=== PATIENT | female | born 1940 | race Caucasian/White ===

== ENCOUNTER 2022-05-13 11:30 | Emergency (ER) | payer OTHER ==
[2022-05-13 12:20] VITALS: BP 146/106; PULSE 103; RESP 20; TEMP 97.4; BMI 27.1
[2022-05-13] MEDS ORDERED: MECLIZINE HCL 25 MG TABLET (FP) PO ONE ×2 (13:05→14:28)
[2022-05-13] MEDS ORDERED: MECLIZINE HCL 25 MG TABLET (FP) ONE ×2 (13:12→14:49)
[2022-05-13] MEDS ORDERED: diazePAM 5 MG TABLET PO ONE (16:16)
[2022-05-13] MEDS ORDERED: diazePAM 5 MG TABLET ONE (16:47)
[2022-05-13 17:12] LABS: BASO % 1.3 % (0-2.0); EOS % 0.5 % (0-4.5); HEMATOCRIT 45.3 % (32.4-45.2); LYMPH % 23.2 % (8-40); MCH 27.7 pg (25.7-33.7); MEAN CELL VOLUME 83.9 fl (80-96); MEAN PLT VOLUME 8.7 fl (7.5-11.1); MONO % 8.1 % (3.8-10.2); NEUT % 66.9 % (42.8-82.8); PLATELET COUNT 347 10^3/uL (134-434); RDW 14.6 % (11.6-15.6); WHITE BLOOD COUNT 9.9 K/mm3 (4.0-10.0)
[2022-05-13 17:33] LABS: ALBUMIN 3.8 g/dl (3.4-5.0); BLOOD UREA NITROGEN 14.3 mg/dL (7-18); CALCIUM 9.3 mg/dL (8.5-10.1)
[2022-05-13 17:36] LABS: CREATININE 0.9 mg/dL (0.55-1.3)
[2022-05-13 17:37] LABS: BILIRUBIN,TOTAL 0.5 mg/dL (0.2-1); TOT PROT 7.7 g/dl (6.4-8.2)
== END 2022-05-13 19:00 | disposition home or self-care (01) ==
LOC: JER 11:30 → UNDOADMOB 16:59 → JERBED 16:59 → JER 19:00
DX: H81.10 Benign paroxysmal vertigo, unspecified ear (principal)
CPT/HCPCS: 36415; 70450-TC; 71045-TC-FY; 80053; 82962; 85025; 93005; 93010; 99285-25

== ENCOUNTER 2024-03-06 11:29 | Day surgery (SDC) | payer OTHER ==
[2024-03-06] MEDS: FERRIC CARBOXYMALTOSE 750 MG in SODIUM CHLORIDE 250 ML IVPB ONE (12:00)
[2024-03-06 15:30] VITALS: BP 124/73; PULSE 80; RESP 16; TEMP 98.6
== END 2024-03-06 13:21 | disposition home or self-care (01) ==
LOC: FINFUSION 11:29 → FM/S 11:34 → FINFUSION 13:21
PROVIDERS: ATTEND Family Medicine
PROC: 3E033GC Introduction of Other Therapeutic Substance into Peripheral Vein, Percutaneous Approach (ICD-10-PCS; principal; 2024-03-06)
DX: D50.9 Iron deficiency anemia, unspecified (principal)
CPT/HCPCS: 96365; J1439

== ENCOUNTER 2024-03-13 11:13 | Day surgery (SDC) | payer OTHER ==
[2024-03-13] MEDS: FERRIC CARBOXYMALTOSE 750 MG in SODIUM CHLORIDE 250 ML IVPB ONE (11:55)
[2024-03-13 13:21] VITALS: BP 117/76; PULSE 70; RESP 19; TEMP 98.1
== END 2024-03-13 13:23 | disposition home or self-care (01) ==
LOC: FINFUSION 11:13 → FM/S 11:16 → FINFUSION 13:23
PROVIDERS: ATTEND Family Medicine
PROC: 3E033GC Introduction of Other Therapeutic Substance into Peripheral Vein, Percutaneous Approach (ICD-10-PCS; principal; 2024-03-13)
DX: D50.9 Iron deficiency anemia, unspecified (principal)
CPT/HCPCS: 96365; J1439

== ENCOUNTER 2024-08-15 11:12 | Inpatient (IN) | payer OTHER ==
[2024-08-15 12:57] LABS: POTASSIUM 5.4 mmol/L (3.5-5.1)
[2024-08-15 12:59] LABS: ALBUMIN 3.2 g/dl (3.4-5.0); BLOOD UREA NITROGEN 11.3 mg/dL (7-18); CALCIUM 8.8 mg/dL (8.5-10.1)
[2024-08-15 13:00] LABS: MAGNESIUM 2.4 mg/dL (1.8-2.4)
[2024-08-15 13:03] LABS: CREATININE 0.9 mg/dL (0.55-1.3)
[2024-08-15 13:04] LABS: BILIRUBIN,TOTAL 0.7 mg/dL (0.2-1); TOT PROT 7.5 g/dl (6.4-8.2)
[2024-08-15 13:22] LABS: BASO % 0.9 % (0-2.0); EOS % 1.9 % (0-4.5); HEMATOCRIT 36.3 % (32.4-45.2); HEMOGLOBIN 11.5 GM/dL (10.7-15.3); LYMPH % 15.3 % (8-40); MCH 24.9 pg (25.7-33.7); MCHC 31.7 g/dl (32.0-36.0); MEAN CELL VOLUME 78.7 fl (80-96); MEAN PLT VOLUME 8.4 fl (7.5-11.1); MONO % 10.3 % (3.8-10.2); NEUT % 71.6 % (42.8-82.8); PLATELET COUNT 392 10^3/uL (134-434); RBC 4.61 M/mm3 (3.60-5.2); RDW 15.9 % (11.6-15.6); WHITE BLOOD COUNT 8.4 K/mm3 (4.0-10.0)
[2024-08-15 13:29] LABS: INR 1.09 (0.83-1.09); PROTHROMBIN TIME (PATIENT) 12.3 SEC (9.7-13.0)
[2024-08-15 13:31] LABS: ACTIVATED PTT 30.2 SECONDS (25.2-36.5)
[2024-08-15 13:50] LABS: EPI CELLS 18 /uL (0-25.1); HYALINE CASTS 0 /uL (0-3.1); URINE APPEARANCE CLEAR; URINE BACTERIA 557 /uL (0-1359); URINE BILIRUBIN NEGATIVE (NEGATIVE); URINE COLOR YELLOW; URINE GLUCOSE (UA) NEGATIVE (NEGATIVE); URINE KETONE NEGATIVE (NEGATIVE); URINE LEUK ESTERASE TRACE (NEGATIVE); URINE NITRITE NEGATIVE (NEGATIVE); URINE PROTEIN NEGATIVE (NEGATIVE); URINE RBC 85 /uL (0-23.9); URINE UROBILINOGEN 0.2 mg/dL (0.2-1.0); URINE WBC 20 /uL (0-25.8)
[2024-08-15 14:13] LABS: ALBUMIN 3.2 g/dl (3.4-5.0); BILIRUBIN,TOTAL 0.3 mg/dL (0.2-1); BLOOD UREA NITROGEN 11.6 mg/dL (7-18); CREATININE 0.8 mg/dL (0.55-1.3); MAGNESIUM 2.4 mg/dL (1.8-2.4); POTASSIUM 4.2 mmol/L (3.5-5.1); TOT PROT 7.3 g/dl (6.4-8.2)
[2024-08-15] MEDS ORDERED: ACETAMINOPHEN 1000 MG/100 ML BAG IVPB PRN (14:28)
[2024-08-15] MEDS: DEXTROSE 5%-NORMAL SALINE 1,000 ML IV SCH (15:17)
[2024-08-15 18:00] VITALS: BMI 23.7
[2024-08-15 21:29] VITALS: RESP 18
[2024-08-15] MEDS ORDERED: PANTOPRAZOLE SODIUM 40 MG VIAL IVPUSH SCH (22:00)
[2024-08-15] MEDS: HYDROCORTISONE ACETATE 25 MG/SUPP.RECT RC SCH (22:35)
[2024-08-16 08:46] LABS: BASO % 0.7 % (0-2.0); EOS % 4.3 % (0-4.5); HEMATOCRIT 34.2 % (32.4-45.2); HEMOGLOBIN 10.7 GM/dL (10.7-15.3); LYMPH % 20.9 % (8-40); MCH 24.7 pg (25.7-33.7); MCHC 31.2 g/dl (32.0-36.0); MEAN CELL VOLUME 79.1 fl (80-96); MEAN PLT VOLUME 8.2 fl (7.5-11.1); MONO % 12.1 % (3.8-10.2); PLATELET COUNT 339 10^3/uL (134-434); RBC 4.32 M/mm3 (3.60-5.2); RDW 16.2 % (11.6-15.6); WHITE BLOOD COUNT 7.3 K/mm3 (4.0-10.0)
[2024-08-16 09:12] LABS: INR 1.13 (0.83-1.09); POTASSIUM 3.9 mmol/L (3.5-5.1); PROTHROMBIN TIME (PATIENT) 12.7 SEC (9.7-13.0)
[2024-08-16 09:19] LABS: ALBUMIN 2.9 g/dl (3.4-5.0); BLOOD UREA NITROGEN 9.7 mg/dL (7-18)
[2024-08-16 09:22] LABS: BILIRUBIN,TOTAL 0.4 mg/dL (0.2-1); CREATININE 0.7 mg/dL (0.55-1.3); TOT PROT 6.4 g/dl (6.4-8.2)
[2024-08-16] MEDS: POLYETHYLENE GLYCOL (HEALTHYLAX) 3350 17 GM PACKET PO SCH (09:50)
[2024-08-16] MEDS: PANTOPRAZOLE 40 MG TABLET PO SCH (09:50)
[2024-08-16 12:32] VITALS: BP 121/100; PULSE 82; TEMP 97.9
== END 2024-08-16 13:44 | disposition home or self-care (01) | DRG 379 ==
LOC: JER 11:12 → JERBED 14:10 → J6S 17:26
PROVIDERS: ADMIT Family Medicine; ATTEND Family Medicine
DX: K62.5 Hemorrhage of anus and rectum (principal); K57.93 Diverticulitis of intestine, part unspecified, without perforation or abscess with bleeding; I10 Essential (primary) hypertension; Z79.02 Long term (current) use of antithrombotics/antiplatelets; M19.90 Unspecified osteoarthritis, unspecified site; F17.210 Nicotine dependence, cigarettes, uncomplicated; Z79.82 Long term (current) use of aspirin
CPT/HCPCS: 36415; 71045-TC-FY; 80053; 81003; 82272; 83605; 83690; 83735; 85025; 85610; 85730; 86850; 86900; 86901; 93005; 93010; 99285-25

== ENCOUNTER 2025-01-15 06:54 | Inpatient (IN) | payer OTHER ==
[2025-01-15] MEDS ORDERED: INDOCYANINE GREEN 25 MG/10 ML VIAL IVPUSH ONE (07:04)
[2025-01-15] MEDS ORDERED: BUPIVACAINE HCL/PF 0.25% (2.5MG/ML) 10 ML VIAL ONE (07:05)
[2025-01-15] MEDS ORDERED: HEPARIN NA (PORCINE) 5,000 UNITS/ML 1ML VIAL ONE (07:05)
[2025-01-15] MEDS ORDERED: GABAPENTIN 300 MG CAPSULE ONE (07:21)
[2025-01-15] MEDS ORDERED: SCOPOLAMINE HYDROBROMIDE 1 PATCH PATCH.TD72 ONE (07:23)
[2025-01-15] MEDS: SCOPOLAMINE HYDROBROMIDE 1 PATCH PATCH.TD72 TD ONE (07:28)
[2025-01-15] MEDS: GABAPENTIN 300 MG CAPSULE PO ONE (07:28)
[2025-01-15] MEDS ORDERED: LIDOCAINE HCL/PF 2% SDV 5ML VIAL ONE (08:15)
[2025-01-15] MEDS ORDERED: ROCURONIUM BROMIDE 50 MG/5 ML SYRINGE ONE ×3 (08:15→13:13)
[2025-01-15] MEDS ORDERED: PROPOFOL 20 ML ONE (08:15)
[2025-01-15] MEDS ORDERED: ePHEDrine SULFATE 50 MG/1 ML AMPULE ONE ×2 (08:42→16:04)
[2025-01-15] MEDS: cefOXitin SODIUM 2 GM VIAL (RESTRICTED TO ID) IVPB ONE ×5 (08:45→20:38)
[2025-01-15] MEDS ORDERED: DEXAMETHASONE SOD PHOSPHATE 4 MG/1 ML VIAL ONE (08:57)
[2025-01-15] MEDS ORDERED: MAGNESIUM SULF 50% (8.12 MEQ/2 ML-1 GM VIAL) ONE ×2 (09:06)
[2025-01-15] MEDS: BUPIVACAINE HCL/PF 0.25% (2.5MG/ML) 10 ML VIAL IJ ONE (09:08)
[2025-01-15] MEDS ORDERED: cefOXitin SODIUM 2 GM VIAL (RESTRICTED TO ID) IVPB ONE (12:23)
[2025-01-15] MEDS ORDERED: PHENYLEPHRINE HCL 10 MG/1 ML SINGLE DOSE VIAL ONE (12:42)
[2025-01-15] MEDS ORDERED: ACETAMINOPHEN INJECTION 100 ML ONE (14:01)
[2025-01-15] MEDS ORDERED: SUGAMMADEX SODIUM 200 MG/2 ML VIAL ONE ×2 (14:14→14:33)
[2025-01-15] MEDS ORDERED: ONDANSETRON 4 MG/2 ML VIAL ONE (14:30)
[2025-01-15] MEDS ORDERED: morphine SULFATE 4 MG/ML VIAL IVPUSH PRN ×2 (15:31→16:56)
[2025-01-15] MEDS ORDERED: CEFOXITIN SODIUM 1 GM in DEXTROSE 5%-WATER - 100 ML IVPB SCH ×2 (16:30→18:00)
[2025-01-15] MEDS ORDERED: ONDANSETRON 4 MG/2 ML VIAL IVPUSH PRN (16:42)
[2025-01-15] MEDS: LACTATED RINGERS SOLUTION 1,000 ML IV SCH (16:45)
[2025-01-15 17:27] LABS: ARTERIAL BLD GAS O2 SATURATION 99.1 % (95-98); ARTERIAL BLOOD GAS BASE EXCESS -8.3 mmol/L (-2-2); ARTERIAL BLOOD GAS PO2 178.1 mmHg (80-100); ARTERIAL BLOOD GAS pH 7.292 (7.350-7.450); O2 CONTENT 1.74 % vol
[2025-01-15 17:32] LABS: HEMOGLOBIN 11.1 g/dL (11.2-15.7)
[2025-01-15 17:39] LABS: HEMATOCRIT 36.6 % (34.1-44.9); MCHC 30.3 g/dl (32.2-35.5); PLATELET COUNT 372 x10^3/uL (182-369)
[2025-01-15 17:46] LABS: INR 1.12 (0.83-1.09); PROTHROMBIN TIME (PATIENT) 12.3 SEC (9.7-13.0)
[2025-01-15 17:48] LABS: ALBUMIN 1.6 g/dl (3.4-5.0); BLOOD UREA NITROGEN 7.6 mg/dL (7-18); CO2 13 mmol/L (21-32); GLUCOSE,RANDOM 93 mg/dL (74-106); MAGNESIUM 1.1 mg/dL (1.8-2.4)
[2025-01-15 17:49] LABS: ACTIVATED PTT 28.9 SECONDS (25.2-36.5)
[2025-01-15 17:51] LABS: CREATININE 0.4 mg/dL (0.55-1.3); SGOT/AST 14 U/L (15-37); SGPT/ALT 10 U/L (13-61)
[2025-01-15 17:52] LABS: CHLORIDE 128 mmol/L (98-107); PHOSPHOROUS 2.4 mg/dL (2.5-4.9); SODIUM 151 mmol/L (136-145)
[2025-01-15 17:53] LABS: BILIRUBIN,TOTAL 0.4 mg/dL (0.2-1)
[2025-01-15 17:54] LABS: ALK PHOS 33 U/L (45-117); TOT PROT 3.5 g/dl (6.4-8.2)
[2025-01-15 17:56] LABS: ANION GAP 9 mmol/L (4-13); POTASSIUM 2.1 mmol/L (3.5-5.1)
[2025-01-15 18:24] LABS: CALCIUM < 5.0 mg/dL (8.5-10.1)
[2025-01-15] MEDS: MAGNESIUM SULFATE IN WATER 2 GM/50 ML IVPB IVPB ONE (18:50)
[2025-01-15] MEDS: KCL 10 MEQ IVPB 10 MEQ/100 ML INFUS.BAG IVPB SCH (19:09)
[2025-01-15] MEDS: KETOROLAC TROMETHAMINE 15 MG/ML VIAL IVPUSH PRN (19:26)
[2025-01-15] MEDS ORDERED: ACETAMINOPHEN 1000 MG/100 ML BAG IVPB SCH (20:30)
[2025-01-15] MEDS: POTASSIUM CHLORIDE ORAL LIQUID 20 MEQ/15 ML PO ONE (20:37)
[2025-01-15] MEDS: CEFOXITIN SODIUM 1 GM in DEXTROSE 5%-WATER 100 ML IVPB SCH ×2 (20:38→21:29)
[2025-01-15] MEDS ORDERED: KETOROLAC TROMETHAMINE 15 MG/ML VIAL IVPUSH SCH (21:45)
[2025-01-15] MEDS: MUPIROCIN 2% TOPICAL OINTMENT FOR DECOLONIZATION NS SCH (21:59)
[2025-01-15] MEDS: CHLORHEXIDINE GLUCONATE 4% CLEANSER FOR DECOLONIZATION TP SCH (21:59)
[2025-01-15] MEDS ORDERED: MUPIROCIN 2% TOPICAL OINTMENT FOR DECOLONIZATION NS SCH (22:00)
[2025-01-15] MEDS ORDERED: CHLORHEXIDINE GLUCONATE 4% CLEANSER FOR DECOLONIZATION TP SCH (22:00)
[2025-01-15] MEDS: D5-1/2NS+40 MEQ KCL - 40 MEQ/1,000 ML INFUS.BAG IV SCH (22:55)
[2025-01-15] MEDS: ACETAMINOPHEN 1000 MG/100 ML BAG IVPB SCH (22:57)
[2025-01-15] MEDS: ALBUMIN HUMAN 25% 12.5 GM/50 ML VIAL IV SCH (23:00)
[2025-01-16] MEDS: KETOROLAC TROMETHAMINE 15 MG/ML VIAL IVPUSH SCH (01:37)
[2025-01-16 05:55] LABS: ARTERIAL BLD GAS O2 SATURATION 98.9 % (95-98); ARTERIAL BLOOD GAS BASE EXCESS -5.8 mmol/L (-2-2); ARTERIAL BLOOD GAS PO2 145.3 mmHg (80-100); ARTERIAL BLOOD GAS pH 7.384 (7.350-7.450)
[2025-01-16 05:56] LABS: ALLENS TEST POSITIVE
[2025-01-16 06:27] LABS: POTASSIUM 4.4 mmol/L (3.5-5.1)
[2025-01-16 06:30] LABS: BLOOD UREA NITROGEN 8.4 mg/dL (7-18); MAGNESIUM 2.4 mg/dL (1.8-2.4)
[2025-01-16 06:33] LABS: CREATININE 1.1 mg/dL (0.55-1.3)
[2025-01-16 06:34] LABS: BILIRUBIN,TOTAL 0.6 mg/dL (0.2-1)
[2025-01-16 06:52] LABS: ALBUMIN 3.5 g/dl (3.4-5.0); CALCIUM 7.1 mg/dL (8.5-10.1); TOT PROT 6.2 g/dl (6.4-8.2)
[2025-01-16] MEDS: CALCIUM GLUCONATE IN NACL 1 GM/50 ML BAG IVPB ONE (08:30)
[2025-01-16 08:56] LABS: ABSOLUTE IMMATURE GRANULOCYTES 0.09 x10^3/uL (0.0-0.031); BASOPHILS # 0.02 x10^3/uL (0.01-0.08); HEMATOCRIT 31.7 % (34.1-44.9); HEMOGLOBIN 9.8 g/dL (11.2-15.7); MCHC 30.9 g/dl (32.2-35.5); MEAN CELL VOLUME 71.4 fl (79.4-94.8); MONOCYTE # 0.81 x10^3/uL (0.24-0.86); MONOCYTE % 5.1 % (4.7-12.5)
[2025-01-16] MEDS: POTASSIUM PHOSPHATE 15 MM in SODIUM CHLORIDE 250 ML IVPB ONE (09:08)
[2025-01-16] MEDS: ENOXAPARIN NA (PORCINE) 30 MG/0.3 ML DISP.SYRIN SQ SCH (09:08)
[2025-01-16] MEDS ORDERED: ONDANSETRON 4 MG/2 ML VIAL IVPUSH PRN (09:20)
[2025-01-16] MEDS ORDERED: ONDANSETRON 4 MG/2 ML VIAL ONE (09:24)
[2025-01-16] MEDS: ONDANSETRON 4 MG/2 ML VIAL IVPUSH ONE (09:30)
[2025-01-16] MEDS: DEXTROSE 5%-0.45% SALINE 1,000 ML IV SCH ×2 (09:58→15:59)
[2025-01-16] MEDS ORDERED: SODIUM PHOSPHATE - 15 MM in SODIUM CHLORIDE 250 ML IVPB ONE (10:00)
[2025-01-16] MEDS ORDERED: POTASSIUM PHOSPHATE 15 MM in SODIUM CHLORIDE 250 ML IVPB ONE ×2 (10:00→15:18)
[2025-01-16] MEDS ORDERED: ENOXAPARIN NA (PORCINE) 30 MG/0.3 ML DISP.SYRIN SQ SCH (10:00)
[2025-01-16] MEDS: ACETAMINOPHEN 1000 MG/100 ML BAG IVPB PRN (17:31)
[2025-01-16] MEDS ORDERED: CEFOXITIN SODIUM 1 GM in DEXTROSE 5%-WATER - 100 ML IVPB SCH (18:00)
[2025-01-16] MEDS: CEFOXITIN SODIUM 1 GM in DEXTROSE 5%-WATER 100 ML IVPB SCH (18:19)
[2025-01-16] MEDS: ONDANSETRON 4 MG/2 ML VIAL IVPUSH PRN (19:29)
[2025-01-16] MEDS ORDERED: KETOROLAC TROMETHAMINE 15 MG/ML VIAL IVPUSH SCH (19:30)
[2025-01-16] MEDS: KETOROLAC TROMETHAMINE 15 MG/ML VIAL IVPUSH PRN (21:13)
[2025-01-17 07:38] LABS: HEMATOCRIT 26.1 % (34.1-44.9); MCHC 30.7 g/dl (32.2-35.5); MEAN CELL VOLUME 71.9 fl (79.4-94.8); PLATELET COUNT 279 x10^3/uL (182-369)
[2025-01-17 07:47] LABS: CHLORIDE 114 mmol/L (98-107); POTASSIUM 3.4 mmol/L (3.5-5.1); SODIUM 143 mmol/L (136-145)
[2025-01-17 07:52] LABS: ALBUMIN 3.2 g/dl (3.4-5.0); CALCIUM 7.7 mg/dL (8.5-10.1)
[2025-01-17 07:53] LABS: ANION GAP 7 mmol/L (4-13); CO2 23 mmol/L (21-32); GLUCOSE,RANDOM 246 mg/dL (74-106); MAGNESIUM 2.2 mg/dL (1.8-2.4)
[2025-01-17 07:55] LABS: SGOT/AST 18 U/L (15-37); SGPT/ALT 15 U/L (13-61)
[2025-01-17 07:56] LABS: CREATININE 0.8 mg/dL (0.55-1.3)
[2025-01-17 07:57] LABS: BILIRUBIN,TOTAL 0.6 mg/dL (0.2-1); TOT PROT 5.7 g/dl (6.4-8.2)
[2025-01-17 07:58] LABS: ALK PHOS 40 U/L (45-117)
[2025-01-17] MEDS: ENOXAPARIN NA (PORCINE) 30 MG/0.3 ML DISP.SYRIN SQ SCH (09:28)
[2025-01-17 16:27] LABS: HEMATOCRIT 26.4 % (34.1-44.9); HEMOGLOBIN 8.3 g/dL (11.2-15.7); MCHC 31.4 g/dl (32.2-35.5); MEAN CELL VOLUME 71.5 fl (79.4-94.8); PLATELET COUNT 299 x10^3/uL (182-369)
[2025-01-17 16:52] LABS: POTASSIUM 3.6 mmol/L (3.5-5.1)
[2025-01-17 16:53] LABS: CALCIUM 8.3 mg/dL (8.5-10.1)
[2025-01-17 16:54] LABS: ALBUMIN 3.3 g/dl (3.4-5.0); BLOOD UREA NITROGEN 22.1 mg/dL (7-18)
[2025-01-17 16:57] LABS: CREATININE 0.9 mg/dL (0.55-1.3)
[2025-01-17 17:03] LABS: BILIRUBIN,TOTAL 0.7 mg/dL (0.2-1)
[2025-01-17] MEDS: D5-1/2NS+10 MEQ KCL - 10 MEQ/1,000 ML INFUS.BAG IV SCH (19:22)
[2025-01-17] MEDS: POTASSIUM PHOSPHATE 30 MM in DEXTROSE 5%-WATER - 500 ML IVPB ONE (19:57)
[2025-01-17] MEDS: POTASSIUM CHLORIDE 10 MEQ in DEXTROSE 5%-0.45% SALINE 995 ML IV SCH (21:10)
[2025-01-17] MEDS ORDERED: SODIUM CHLORIDE 1,000 ML IV SCH (21:15)
[2025-01-17] MEDS: CEFOXITIN SODIUM 1 GM in DEXTROSE 5%-WATER 100 ML IVPB SCH (21:29)
[2025-01-18 06:59] LABS: EOSINOPHIL % 0.4 % (0.7-5.8); EOSINOPHILS # 0.06 x10^3/uL (0.04-0.36); HEMOGLOBIN 7.8 g/dL (11.2-15.7)
[2025-01-18 07:15] LABS: POTASSIUM 3.4 mmol/L (3.5-5.1)
[2025-01-18 07:18] LABS: BLOOD UREA NITROGEN 14.3 mg/dL (7-18); CALCIUM 7.6 mg/dL (8.5-10.1)
[2025-01-18 07:22] LABS: CREATININE 0.7 mg/dL (0.55-1.3); PHOSPHOROUS 1.7 mg/dL (2.5-4.9)
[2025-01-18 07:23] LABS: BILIRUBIN,TOTAL 0.7 mg/dL (0.2-1); TOT PROT 5.7 g/dl (6.4-8.2)
[2025-01-18 08:05] LABS: BASOPHILS # 0.05 x10^3/uL (0.01-0.08); MCHC 31.2 g/dl (32.2-35.5); MEAN CELL VOLUME 70.6 fl (79.4-94.8); MONOCYTE # 0.75 x10^3/uL (0.24-0.86); MONOCYTE % 5.3 % (4.7-12.5); PLATELET COUNT 246 x10^3/uL (182-369)
[2025-01-18] MEDS: POTASSIUM PHOSPHATE 30 MM in SODIUM CHLORIDE 500 ML IVPB ONE (18:04)
[2025-01-19 10:07] LABS: MONOCYTE % 5.9 % (4.7-12.5)
[2025-01-19 10:13] LABS: ABSOLUTE IMMATURE GRANULOCYTES 0.06 x10^3/uL (0.0-0.031); BASOPHILS # 0.03 x10^3/uL (0.01-0.08); EOSINOPHIL % 1.8 % (0.7-5.8); EOSINOPHILS # 0.18 x10^3/uL (0.04-0.36); HEMATOCRIT 28.6 % (34.1-44.9); HEMOGLOBIN 9.1 g/dL (11.2-15.7); MCHC 31.8 g/dl (32.2-35.5); MEAN CELL VOLUME 70.6 fl (79.4-94.8); MONOCYTE # 0.58 x10^3/uL (0.24-0.86); PLATELET COUNT 338 x10^3/uL (182-369)
[2025-01-19 10:22] LABS: ALBUMIN 3.3 g/dl (3.4-5.0); BLOOD UREA NITROGEN 7.4 mg/dL (7-18); CALCIUM 7.8 mg/dL (8.5-10.1)
[2025-01-19 10:25] LABS: CREATININE 0.6 mg/dL (0.55-1.3); PHOSPHOROUS 1.9 mg/dL (2.5-4.9)
[2025-01-19 10:53] LABS: BILIRUBIN,TOTAL 0.6 mg/dL (0.2-1); TOT PROT 6.4 g/dl (6.4-8.2)
[2025-01-20 08:58] LABS: MONOCYTE % 10.1 % (4.7-12.5)
[2025-01-20 09:11] LABS: ABSOLUTE IMMATURE GRANULOCYTES 0.03 x10^3/uL (0.0-0.031); BASOPHILS # 0.04 x10^3/uL (0.01-0.08); EOSINOPHIL % 4.1 % (0.7-5.8); EOSINOPHILS # 0.28 x10^3/uL (0.04-0.36); HEMATOCRIT 26.5 % (34.1-44.9); HEMOGLOBIN 8.2 g/dL (11.2-15.7); MCHC 30.9 g/dl (32.2-35.5); MEAN CELL VOLUME 71.8 fl (79.4-94.8); MONOCYTE # 0.69 x10^3/uL (0.24-0.86); PLATELET COUNT 301 x10^3/uL (182-369)
[2025-01-20 09:17] LABS: POTASSIUM 3.9 mmol/L (3.5-5.1)
[2025-01-20 09:22] LABS: CALCIUM 7.9 mg/dL (8.5-10.1)
[2025-01-20 09:24] LABS: MAGNESIUM 1.8 mg/dL (1.8-2.4)
[2025-01-20 09:25] LABS: CREATININE 0.5 mg/dL (0.55-1.3)
[2025-01-20 09:26] LABS: PHOSPHOROUS 1.6 mg/dL (2.5-4.9)
[2025-01-20 09:27] LABS: BILIRUBIN,TOTAL 0.6 mg/dL (0.2-1)
[2025-01-20 14:37] VITALS: RESP 18
[2025-01-21 08:06] LABS: ABSOLUTE IMMATURE GRANULOCYTES 0.02 x10^3/uL (0.0-0.031); BASOPHILS # 0.05 x10^3/uL (0.01-0.08); EOSINOPHIL % 3.8 % (0.7-5.8); HEMOGLOBIN 8.1 g/dL (11.2-15.7); MCHC 31.2 g/dl (32.2-35.5); MEAN CELL VOLUME 71.2 fl (79.4-94.8); MONOCYTE # 0.86 x10^3/uL (0.24-0.86); MONOCYTE % 16.1 % (4.7-12.5); PLATELET COUNT 345 x10^3/uL (182-369)
[2025-01-21 08:35] LABS: POTASSIUM 3.8 mmol/L (3.5-5.1)
[2025-01-21 08:44] LABS: ALBUMIN 2.9 g/dl (3.4-5.0); BLOOD UREA NITROGEN 5.1 mg/dL (7-18)
[2025-01-21 08:45] LABS: BILIRUBIN,TOTAL 0.6 mg/dL (0.2-1); TOT PROT 5.9 g/dl (6.4-8.2)
[2025-01-21 08:47] LABS: CALCIUM 8.2 mg/dL (8.5-10.1); CREATININE 0.5 mg/dL (0.55-1.3); MAGNESIUM 1.9 mg/dL (1.8-2.4); PHOSPHOROUS 1.7 mg/dL (2.5-4.9)
[2025-01-21] MEDS: IRON SUCROSE INJECTION 200 MG in SODIUM CHLORIDE 100 ML IVPB ONE (11:19)
[2025-01-21 16:57] VITALS: BMI 20.1
[2025-01-22 08:37] LABS: ABSOLUTE IMMATURE GRANULOCYTES 0.04 x10^3/uL (0.0-0.031); BASOPHILS # 0.03 x10^3/uL (0.01-0.08); EOSINOPHIL % 2.7 % (0.7-5.8); EOSINOPHILS # 0.18 x10^3/uL (0.04-0.36); HEMATOCRIT 26.2 % (34.1-44.9); HEMOGLOBIN 8.1 g/dL (11.2-15.7); MCHC 30.9 g/dl (32.2-35.5); MEAN CELL VOLUME 72.2 fl (79.4-94.8); MONOCYTE # 0.83 x10^3/uL (0.24-0.86); MONOCYTE % 12.2 % (4.7-12.5); PLATELET COUNT 371 x10^3/uL (182-369)
[2025-01-22 08:38] LABS: ALBUMIN 2.9 g/dl (3.4-5.0); CALCIUM 8.7 mg/dL (8.5-10.1)
[2025-01-22 08:40] LABS: BLOOD UREA NITROGEN 7.1 mg/dL (7-18); MAGNESIUM 1.9 mg/dL (1.8-2.4)
[2025-01-22 08:42] LABS: CREATININE 0.5 mg/dL (0.55-1.3)
[2025-01-22 08:43] LABS: BILIRUBIN,TOTAL 0.5 mg/dL (0.2-1)
[2025-01-22 08:45] LABS: PHOSPHOROUS 2.5 mg/dL (2.5-4.9)
[2025-01-22 11:02] VITALS: BP 121/76; PULSE 93; TEMP 97.7
== END 2025-01-22 11:46 | disposition home health service (06) ==
LOC: J2C 06:54 → JICU 18:10 → J6S 01-16 14:44
PROVIDERS: ADMIT Internal Medicine Pulmonary Disease; ATTEND Family Medicine
DX: C18.7 Malignant neoplasm of sigmoid colon (principal)
CPT/HCPCS: 36415; 36600; 71045-TC-FY; 74018-TC-FY; 80048; 80053; 82728; 82803; 82962; 83540; 83550; 83605; 83735; 84100; 85025; 85027; 85610; 85730; 86140; 86850; 86900; 86901; 87040; 88307-TC; 88309-TC; 94002; 94760; 97116-GP; 97162-GP; J1756; P9047